=== PATIENT | male | born 1945 | race Caucasian/White ===

== ENCOUNTER 2019-11-05 11:25 | Day surgery (SDC) | payer OTHER, BC ==
[2019-10-31 15:45] VITALS: BMI 29.2
[2019-11-05 11:45] VITALS: TEMP 97.7
[2019-11-05] MEDS ORDERED: MIDAZOLAM HCL 2 MG/2 ML SINGLE DOSE VIAL ONE (11:45)
[2019-11-05] MEDS ORDERED: PROPOFOL 20 ML ONE ×2 (11:45→13:26)
[2019-11-05] MEDS ORDERED: LIDOCAINE HCL 2% (20ML MULTI-DOSE VIAL) ONE (12:52)
[2019-11-05] MEDS ORDERED: oxyCODONE HCL 5 MG TABLET PO PRN (13:36)
[2019-11-05] MEDS ORDERED: LIDOCAINE HCL 2% (50ML VIAL) SQ ONE (13:36)
[2019-11-05] MEDS ORDERED: ONDANSETRON 4 MG/2 ML VIAL IVPUSH PRN (13:36)
[2019-11-05] MEDS ORDERED: LACTATED RINGERS SOLUTION 1,000 ML IV SCH (13:45)
[2019-11-05 14:42] VITALS: BP 134/74; PULSE 56
--- NOTE | 2019-11-05 14:48 | OP ---
DATE OF OPERATION: 11/05/2019 PREOPERATIVE DIAGNOSES: 1. Right carpal tunnel syndrome. 2. Right index trigger finger. 3. Right Dupuytren's disease with ring finger mild contracture. POSTOPERATIVE DIAGNOSES: 1. Right carpal tunnel syndrome. 2. Right index trigger finger. 3. Right Dupuytren's disease with ring finger mild contracture. OPERATIVE PROCEDURE: 1. Right carpal tunnel release. 2. Right index trigger finger release. 3. Right ring and palm partial palmar fasciectomy and Dupuytren's release. SURGEON: Ruben Delgadillo MD MACHINE STEAK TENDERIZER: DASHA Streeter ANESTHESIA: Local with sedation. COMPLICATIONS: None. ESTIMATED BLOOD LOSS: Minimal. INDICATION FOR PROCEDURE: [id number] male with the above finding indicated for operative treatment. Risks, benefits, and alternatives were discussed with the patient at length. Proper informed consent was obtained. DESCRIPTION OF PROCEDURE: After preoperative identification of the patient and correct operative site, patient brought to the operating room and placed supine on the operating table with all prominences well padded. Sedation was given by the anesthesiologist. Local anesthesia was given with 2% lidocaine. Right upper extremity was prepped and draped in the usual sterile fashion. A well-padded tourniquet was placed over the sterile prep. Esmarch bandage used to exsanguinate the right upper extremity. The tourniquet was inflated to 250 mmHg. Longitudinal incision was made in the proximal aspect of the palm. Incision was taken sharply through the skin with blunt and sharp dissection through the subcutaneous tissues. Palmar fascia was divided longitudinally. Transverse carpal ligament was divided longitudinally along with the distal 4 cm of the antebrachial fascia under direct visualization with loupe magnification, providing complete release of the median nerve at the wrist. Wound was repaired with 5-0 fast-absorbing plain gut suture as well as Dermabond. A longitudinal incision was made over the A1 amilcar of the index finger. Incision was taken sharply through the skin, with blunt and sharp dissection through subcutaneous tissues. A1 amilcar was identified and divided longitudinally. No further triggering was occurring. This wound was repaired with 5-0 fast-absorbing plain gut suture as well as Dermabond. Third incision was made over the palmar fascia going to the ring finger, where the cord was present going to the ring finger, causing about a 15-degree flexion contracture at the MC joint. Blunt and sharp dissection was gone through subcutaneous tissues, identifying the cord, and the cord was resected carefully with proximal and distal dissection. Once this was removed, the finger was able to be fully straightened. Wound was repaired with 5-0 fast-absorbing plain gut suture as well as Dermabond. Sterile dressings were applied. Patient was brought to recovery in stable condition. He tolerated the procedure well. Vineet Nina, the pest controller assistant, was integral throughout the procedure. Procedure could not have been performed without a skilled operative pest controller assistant. He was especially integral during the Dupuytren's release which required careful retraction of the surrounding neurovascular structures. This could not have been done without a skilled operative pest controller assistant. RUBEN DELGADILLO M.D. [id number]
--- NOTE | 2019-11-10 17:29 | PATH ---
Surgical Pathology Report Patient Name: ADRIAN GARCIA [facility]. Rec. #: [id number] /Age/Gender: 1945 (Age: 74) / M Account: [id number] Location: [facility] Taken: 11/05/2019 Received: 11/05/2019 Reported: 11/10/2019 Physicians: King Brown M.D. Specimen(s) Received RIGHT PALMAR FASCIA Clinical History Carpal tunnel syndrome right hand Final Diagnosis PALMAR FASCIA, RIGHT, RELEASE: FIBROCOLLAGENOUS TISSUE, CONSISTENT WITH FASCIA. Electronically Signed Rosemarie Nugent M.D. Gross Description Received in formalin labeled "right palmar fascia," is a 1.5 x 0.4 x 0.2 cm meyers, irregular portion of fibrous tissue, consistent with palmar fascia. The specimen is submitted in toto in one cassette. 11/06/2019 [facility]11/06/2019
== END 2019-11-05 15:45 | disposition home or self-care (01) ==
LOC: FASU 11:25
PROVIDERS: ATTEND Orthopaedic Surgery Hand Surgery
PROC: 0JNJ0ZZ Release Right Hand Subcutaneous Tissue and Fascia, Open Approach (ICD-10-PCS; 2019-11-05)
PROC: 0LN70ZZ Release Right Hand Tendon, Open Approach (ICD-10-PCS; 2019-11-05)
PROC: 01N50ZZ Release Median Nerve, Open Approach (ICD-10-PCS; principal; 2019-11-05 13:37)
PROC: 0LN70ZZ Release Right Hand Tendon, Open Approach (ICD-10-PCS; 2019-11-05 13:37)
DX: G56.01 Carpal tunnel syndrome, right upper limb (principal); M65.321 Trigger finger, right index finger; M72.0 Palmar fascial fibromatosis [Dupuytren]
CPT/HCPCS: 88304-TC

== ENCOUNTER 2022-11-15 06:11 | Day surgery (SDC) | payer OTHER, BC ==
[2022-11-09 11:20] VITALS: BMI 30.5
[2022-11-15 06:36] VITALS: PULSE 63; RESP 18
[2022-11-15] MEDS ORDERED: LIDOCAINE HCL 2% (20ML MULTI-DOSE VIAL) ONE (07:09)
[2022-11-15] MEDS ORDERED: MIDAZOLAM HCL 2 MG/2 ML SINGLE DOSE VIAL ONE (07:30)
[2022-11-15] MEDS ORDERED: PROPOFOL 20 ML ONE (07:30)
[2022-11-15] MEDS ORDERED: DEXAMETHASONE SOD PHOSPHATE 4 MG/1 ML VIAL ONE (07:52)
[2022-11-15] MEDS ORDERED: ONDANSETRON 4 MG/2 ML VIAL ONE (07:52)
[2022-11-15 08:31] VITALS: BP 128/58; TEMP 97.5
== END 2022-11-15 08:52 | disposition home or self-care (01) ==
LOC: FASU 06:11
PROVIDERS: ATTEND Orthopaedic Surgery Hand Surgery
PROC: 01N50ZZ Release Median Nerve, Open Approach (ICD-10-PCS; principal; 2022-11-15 07:55)
PROC: 0LN80ZZ Release Left Hand Tendon, Open Approach (ICD-10-PCS; 2022-11-15 07:55)
DX: G56.02 Carpal tunnel syndrome, left upper limb (principal); M65.322 Trigger finger, left index finger